=== PATIENT | male | born 1985 | race Two or more races ===

== ENCOUNTER 2025-01-25 11:12 | Emergency (ER) | payer OTHER ==
[~2025-01-25] VITALS: Ht 160 cm; Wt 82.7 kg
--- NOTE | 2025-01-25 11:52 | ED.PDOC ---
History of Present Illness HPI Comments HPI: Past Medical history: DM Past Surgical history: Denies any Medications: Metformin Social History: Denies smoking, and drug use. Daily Alcohol user Allergies: NKDA 39-YEAR-OLD MALE PRESENTS TO EMERGENCY DEPART FOR FOUR DAY HISTORY of some morning sweats and episode of vomit that is yellow in color but everything resolves after words. These symptoms only happened in the morning. Patient went to [facility] two days ago for the same complaint and was given fluid hydration and labs were done and he was told that everything is normal and he wa s discharged home. He was also told that he might be hypertensive. Patient drinks alcohol daily at least two tall cans and two shots daily. Patient had some decreased p.o. intake in the last few days and no bowel movement however he had a bowel movement this morning that was normal. Denies any associated abdominal pain. Denies any diarrhea. Patient has checked his temperature at home and he says he has been afebrile. HPI: Poor Historian. Past Medical History: Diabetes Past Surgical History: Denies any REVIEW OF SYSTEMS: CONSTITUTIONAL: Denies acute: fever, , chills, HEAD: Denies acute: headache, photophobia Eyes: Denies acute: Double vision, vision loss, eye pain, eye discharge. EARS: Denies acute: tinnitus, hearing loss, ear discharge, ear pain, THROAT: Denies acute: sore throat, swelling, difficulty swallowing , pain with swallowing, change in voice. NECK: Denies acute: neck pain, neck swelling, stiff neck. HEART: Denies acute : chest pain, palpitations, LUNGS: Denies acute: SOB, wheezing, cough, hemoptysis ABDOMEN: Denies acute: abdominal pain, Nausea, Vomiting, diarrhea, melena , hematemesis, hematochezia SKIN: Denies acute: rash, redness, lesions, itchiness. EXTREMITIES: Denies acute: calf pain, numbness, tingling, weakness, denies pain in extremity. Denies acute: Low back pain. Neuro: Denies acute: focal neurological deficit, motor or sensory focal neurological deficit, tremors, seizure like activity, confusion, dizziness, change in mental status, loss of bowel or bladder function, cauda equina like symptoms. : Denies acute: dysuria, hematuria, flank pain, increase in urinary frequency. PSYCH: Denies acute: hallucination, suicidal ideation, homicidal ideation. PHYSICAL EXAM: General: ----no----acute distress, awake and alert. Head: normocephalic, atraumatic. Neck: supple, trachea is midline, no swelling. Throat: Normal phonation. Eyes:, no erythema, no purulent discharge, no proptosis, mild icterus. Heart: regular rate, regular rhythm, no significant murmur appreciated. Lungs: no apparent respiratory distress, Able to speak in full sentences. No wheezing, no rhonchi, no crackles. No stridors Clear to auscultation bilaterally. Abdomen: non tender to palpation, non distended, soft, no guarding, no rebound, + bowel sounds. Neuro: Awake, Alert, oriented to name, self, situation, follows commands GCS=15. Speech is normal. Skin: no petechia, no purpura, no cyanosis, non-pale, not jaundice. Lower extremities: --no - Pitting edema no deformity, no focal swelling, no calf TTP. Makes eye contact. moves all four extremities. Face: no apparent facial droop. Ambulating in the ED independently. ED COURSE: DISCLAIMER: This medical document was created using an electronic medical record system with voice recognition software and computerized dictation system. Although this document has been carefully reviewed, there might still be some phonetic and typographical errors. Occasional wrong-word or "sound-alike" substitutions may have occurred due to the inherent limitations of voice recognition software. These areas are purely typographical due to imperfections of the software programs and do not reflect any compromise in the patient's medical care. Please read the chart carefully and recognize, using context, where these substitutions have occurred. Chief Complaint: General Weakness Time Seen by MD: 11:50 Reviewed Notes: Nurses Notes, Medications, Allergies Allergies: Coded Allergies: NO KNOWN ALLERGIES (Unverified , 01/25/25) Information Source: Patient Mode of Arrival: Ambulatory Timing: Days Duration: Since onset, Days Prehospital treatment: None Past Medical History PAST MEDICAL HISTORY: DM Surgical History: Denies all surgeries Family History Family History: Reviewed,noncontributory to illness, Unknown Social History Smoker: Non-Smoker Alcohol: Denies ETOH Use Drugs: Denies Drug Use Lives In: Home Was a procedure done? Was a procedure done?: No Differential Dx Considerations may include: Cirrhosis X-Ray, Labs, Meds, VS Vital Signs Date Time Temp Pulse Resp B/P (MAP) Pulse Ox O2 Delivery O2 Flow Rate FiO2 01/25/25 15:56 98.1 83 16 137/86 (103) 98 98.1 01/25/25 12:57 69 18 97 Room Air 01/25/25 12:57 69 18 131/83 (99) 69 01/25/25 11:14 97.4 80 18 144/101 98 97.4 Lab Test 01/25/25 15:47 01/25/25 14:26 01/25/25 13:51 01/25/25 12:19 Range/Units Troponin I High Sensitivity < 3 L 3 L 3 L </=54 ng/L Lactic Acid Level 1.8 2.6 *H 0.4-2.0 mmol/L Urine Color Yellow Yellow Urine Clarity Clear Clear Urine pH 6.0 5.0-9.0 Urine Specific [place] 1.010 1.001-1.035 Urine Protein Negative Negative Urine Ketones Trace Negative Urine Blood Negative Negative /uL Urine Nitrite Negative Negative Urine Bilirubin Negative Negative Urine Urobilinogen 4 H Negative mg/dL Urine Leukocyte Esterase Negative Negative /uL Urine RBC <1 0 - 3 /hpf Urine Microscopic WBC 1 0-3 /HPF Urine Squamous Epithelial Cells Few <5 /hpf Urine Bacteria None seen None Seen /hpf Urine Glucose Normal Normal mg/dL Urine Opiates Screen Pos NEGATIVE Urine Fentanyl Screen Neg NEGATIVE Urine Barbiturates Screen Neg NEGATIVE Urine Phencyclidine Screen Neg NEGATIVE Urine Amphetamines Screen Neg NEGATIVE Urine Benzodiazepines Screen Neg NEGATIVE Urine Cocaine Screen Neg NEGATIVE Urine Cannabinoids Screen Pos NEGATIVE White Blood Count 11.5 H 4.4-10.8 10^3/uL Red Blood Count 4.36 L 4.5-5.90 10^6/uL Hemoglobin 15.3 13.5-17.5 g/dL Hematocrit 45.3 41.0-53.0 % Mean Corpuscular Volume 103.8 H 80.0-100.0 fL Mean Corpuscular Hemoglobin 35.1 H 28.0-32.0 pg Mean Corpuscular Hemoglobin Concent 33.8 32.0-36.0 g/dL Red Cell Distribution Width 13.6 11.8-14.3 % Platelet Count 54 L 140-450 10^3/uL Mean Platelet Volume 9.2 6.9-10.8 fL Neutrophils (%) (Auto) 77.7 37.0-80.0 % Lymphocytes (%) (Auto) 12.9 10.0-50.0 % Monocytes (%) (Auto) 6.1 0.0-12.0 % Eosinophils (%) (Auto) 2.5 0.0-7.0 % Basophils (%) (Auto) 0.8 0.0-2.0 % Neutrophils # (Auto) 9.0 H 1.6-8.6 10 ^3/uL Lymphocytes # (Auto) 1.5 0.4-5.4 10 ^3/uL Monocytes # (Auto) 0.7 0-1.3 10 ^3/uL Eosinophils # (Auto) 0.3 0-0.8 10 ^3/uL Basophils # (Auto) 0.1 0-0.2 10 ^3/uL Nucleated Red Blood Cells 0.0 % Sodium Level 137 136-145 mmol/L Potassium Level 3.7 3.5-5.1 mmol/L Chloride Level 98 98-107 mmol/L Carbon Dioxide Level 25 20-31 mmol/L Anion Gap 14 5-15 Blood Urea Nitrogen 5 L 9-23 mg/dL Creatinine 0.57 L 0.700-1.30 mg/dL Glomerular Filtration Rate Calc 127 >90 mL/min BUN/Creatinine Ratio 8.8 L 10.0-20.0 Serum Glucose 117 H 74-106 mg/dL Calcium Level 9.5 8.7-10.4 mg/dL Magnesium Level 1.9 1.6-2.6 mg/dL Total Bilirubin 3.3 H 0.2-1.0 mg/dL Aspartate Amino Transferase (AST) 76 H 13-40 U/L Alanine Aminotransferase (ALT) 30 7-40 U/L Alkaline Phosphatase 151 H 46-116 U/L Total Protein 7.9 5.7-8.2 g/dL Albumin 4.5 3.2-4.8 g/dL [facility] [id number] [place] [id number] Ph: [phone] DIAGNOSTIC IMAGING Diagnostic Imaging Report : [id number] Signed PATIENT: BEATRICE DUMONT ACCT: [id number] UNIT: [id number] : 1985 LOC: ER ROOM / BED: / AGE / SEX: 39 / M ADM STATUS: REG ER SERVICE 1148 ORDERING PHYSICIAN: RAQUEL ALVA DO PROCEDURE(s): CXRP - CHEST PORTABLE REASON: WEAK. ORDER NUMBER(s): [id number], ACCESSION NUMBER(s): [id number] XY CHEST PORTABLE, HISTORY: WEAK. COMPARISON: XR CHEST 2 VIEWS on DOS: 09/18/24, XR CHEST 2 VIEWS on DOS: 09/14/24 XR CHEST 2 VIEWS on DOS: 09/18/24, XR CHEST 2 VIEWS on DOS: 09/14/24 TECHNICAL DATA: 1 view of the chest was obtained. FINDINGS: Lines and tubes: None Cardiomediastinal silhouette: normal Pulmonary vasculature: normal Lung expansion: normal Lung airspace: normal Lung interstitium: normal Pleura: normal Pneumothorax: no Bones: Unremarkable Other: no IMPRESSION: No acute intrathoracic abnormality. ATED BY: XAVI KIM MD DICTATED DATE/TIME: 01/25/251221 SIGNED BY: XAVI KIM MD SIGNED DATE/TIME: 01/25/251221 CC: [place] [address] Ph: [phone] DIAGNOSTIC IMAGING Diagnostic Imaging Report : [id number] Signed PATIENT: BEATRICE DUMONT ACCT: [id number] UNIT: [id number] : 1985 LOC: ER ROOM / BED: / AGE / SEX: 39 / M ADM STATUS: REG ER SERVICE 1440 ORDERING PHYSICIAN: RAQUEL ALVA DO PROCEDURE(s): ABPL - CT AB PEL WO CON-NO ORAL OR IV REASON: weak, hyperbili ORDER NUMBER(s): [id number], ACCESSION NUMBER(s): [id number] Indication: weak, hyperbili Technique: CT axial images of the abdomen and pelvis are obtained without contrast. Coronal and sagittal reformats were obtained. Radiation Dose Information: CTDI volume is 18 mGy. Dose-length product is 1009 mGy*cm Comparison: None FINDINGS: There is limited interpretation of the abdomen and pelvis without administration of intravenous contrast. The lung bases demonstrate no pleural effusion. Possible left lower lobe nodule versus atelectasis measuring 7 mm. Tiny bilateral pleural effusions. Adrenal glands unremarkable. Spleen is enlarged measuring 14 cm AP. Pancreas is unremarkable in shape. Cirrhotic morphology liver. Heterogeneous appearance of the liver with tiny nodules Cholelithiasis/sludge. Kidneys demonstrate no hydronephrosis / nephrolithiasis. Stomach is partially distended. Small bowel loops are moderately distended. Moderate volume stool in the colon. Normal appendix. Mesenteric edema. Small amount of ascites fluid. Bladder partially distended. Small amount of free pelvic fluid. No inguinal lymphadenopathy. Xjgi-zb-zxgllesc bilateral sacroiliac degenerative joint disease. Epzj-ry-yazsghjh thoracolumbar degenerative disc disease. IMPRESSION: Limited evaluation without contrast. Cirrhotic morphology liver with sequela of portal hypertension including splenomegaly, mesenteric edema, small amount of ascites fluid. Heterogeneous appearance of the liver with tiny nodules may represent regenerative nodules. Recommend multiphasic MRI abdomen with and without contrast and correlation with alpha fetoprotein levels. Cholelithiasis/ sludge. 7 mm left lower lobe soft tissue nodule. Recommend follow-up per Fleischner society criteria. Other findings as described. ATED BY: CARMELITA DOUGLAS MD DICTATED DATE/TIME: 01/25/251555 SIGNED BY: CARMELITA DOUGLSA MD SIGNED DATE/TIME: 01/25/251555 CC: Time of 1ST Reevaluation: 12:20 Reevaluation 1ST: Unchanged Patient Education/Counseling: Diagnosis, Treatment, Prognosis Family Education/Counseling: No Family Present Comments MDM: patient presented with the above HPI.--multiple symptoms----workup was initiated. patient was found with the above mentioned diagnosis. the following medications were ordered: please refer to order lists of meds and tests obtained by myself Dr. Alva. Patient ED course and VS have been stabilized. Patient has been reassessed in the ED and remained in a stable condition. Pertinent incidental findings were discussed with the patient and/or family. Patient/family voices understanding and is agreeable with plan. Patient has been observed in the ED adequate length of time to insure improvement/stability. Escalation of care considered: Consideration of escalation to observation or admission Patient was ADMITTED to the medicine team for further evaluation and treatment of their presentation. However patient left against medical advice All the reports of any imaging studies that were ordered by myself were reviewed by myself. SEPSIS Sepsis Screen Date sepsis recognized/suspect: Jan 25, 2025 Time Sepsis recognized/suspect: 1114 Recent Procedure: No On Antibiotic Therapy: No Respiratory Rate >20: No Heart Rate >90: No Temp<36 C (96.8 F) or >38.3 C: No SBP <90 or MAP <65 mmHG: No New Acute Mental Status Change: No Is the patient on CPAP, BIPAP,: No Physician Orders Retail Pharmacy Manager (01/25/25 ) Chest Portable (01/25/25 11:48) Electrocardigram (01/25/25 11:48) Ct Ab Pel Wo Con-No Oral Or Iv (01/25/25 14:40) Vital Signs Date Time Temp Pulse Resp B/P (MAP) Pulse Ox O2 Delivery O2 Flow Rate FiO2 01/25/25 15:56 98.1 83 16 137/86 (103) 98 98.1 01/25/25 12:57 69 18 97 Room Air 01/25/25 12:57 69 18 131/83 (99) 69 01/25/25 11:14 97.4 80 18 144/101 98 97.4 Laboratory Tests Test 01/25/25 12:19 01/25/25 14:26 Lactic Acid Level 2.6 mmol/L (0.4-2.0) *H 1.8 mmol/L (0.4-2.0) White Blood Count 11.5 10^3/uL (4.4-10.8) H Departure 1 Departure Time of Disposition: 12:49 Impression: Primary Impression: Generalized weakness Additional Impressions: Thrombocytopenia Liver cirrhosis Qualified Codes: K74.60 - Unspecified cirrhosis of liver; R18.8 - Other ascites Portal hypertension Ascites Qualified Codes: K70.31 - Alcoholic cirrhosis of liver with ascites Left against medical advice Disposition: 07 LEFT AGAINST MEDICAL ADVICE Admit to: Tele Condition: Guarded Additional Instructions: You are leaving against medical advice. Please seek medical attention [facility]. Seek help regarding your alcohol use. Fall on trauma and bleeding precautions. Your platelets are low. Please return to the emergency department if you change your mind. Additional instructions: Please read all instructions provided in this packet carefully. If you are unable to see your primary care/family doctor, please return to our emergency room for re-assessment and re-evaluation in 1 to 2 days. Return to the emergency room here in our facility or to the nearest ER [facility] if your symptoms change or worsen. CONSULTATIONS: you MUST Follow-up for consultation as soon as possible with: ---gastroenterology [facility] You MUST call the consultants office yourself to make an appointment. You may need to arrange that through your insurance and/or your primary/family doctor. If you are unable to see the baby registry sales consultant in 1 to 2 days, you must return to our emergency room (or any other ER of your choice) for re-assessment and re- evaluation. Adequate fluid hydration. Although you have been discharged from the Emergency Department, this does not mean that you have a "clean bill of health". No definitive diagnosis for your symptoms has been made today. It is possible that you are in the process of d eveloping a serious illness. This is why you must return to the ED without fail if any new or worsening symptoms develop. Below is a copy of your radiological report for follow up: [place] [address] Ph: [phone] DIAGNOSTIC IMAGING Diagnostic Imaging Report : [id number] Signed PATIENT: BEATRICE DUMONT ACCT: [id number] UNIT: [id number] : 1985 LOC: ER ROOM / BED: / AGE / SEX: 39 / M ADM STATUS: REG ER SERVICE 1440 ORDERING PHYSICIAN: RAQUEL ALVA DO PROCEDURE(s): ABPL - CT AB PEL WO CON-NO ORAL OR IV REASON: weak, hyperbili ORDER NUMBER(s): [id number], ACCESSION NUMBER(s): [id number] Indication: weak, hyperbili Technique: CT axial images of the abdomen and pelvis are obtained without contrast. Coronal and sagittal reformats were obtained. Radiation Dose Information: CTDI volume is 18 mGy. Dose-length product is 1009 mGy*cm Comparison: None FINDINGS: There is limited interpretation of the abdomen and pelvis without administration of intravenous contrast. The lung bases demonstrate no pleural effusion. Possible left lower lobe nodule versus atelectasis measuring 7 mm. Tiny bilateral pleural effusions. Adrenal glands unremarkable. Spleen is enlarged measuring 14 cm AP. Pancreas is unremarkable in shape. Cirrhotic morphology liver. Heterogeneous appearance of the liver with tiny no dules Cholelithiasis/sludge. Kidneys demonstrate no hydronephrosis / nephrolithiasis. Stomach is partially distended. Small bowel loops are moderately distended. Moderate volume stool in the colon. Normal appendix. Mesenteric edema. Small amount of ascites fluid. Bladder partially distended. Small amount of free pelvic fluid. No inguinal lymphadenopathy. Kcuz-xt-hzcugpyf bilateral sacroiliac degenerative joint disease. Gsia-ns-axjffvma thoracolumbar degenerative disc disease. IMPRESSION: Limited evaluation without contrast. Cirrhotic morphology liver with sequela of portal hypertension including splenomegaly, mesenteric edema, small amount of ascites fluid. Heterogeneous appearance of the liver with tiny nodules may represent regenerative nodules. Recommend multiphasic MRI abdomen with and without contrast and correlation with alpha fetoprotein levels. Cholelithiasis/ sludge. 7 mm left lower lobe soft tissue nodule. Recommend follow-up per Fleischner society criteria. Other findings as described. ATED BY: CARMELITA DOUGLAS MD DICTATED DATE/TIME: 01/25/251555 SIGNED BY: CARMELITA DOUGLAS MD SIGNED DATE/TIME: 01/25/251555 CC: Discharged With: Self Critical Care Note Critical Care Time?: No Heart Score Heart Score: Heart Score Response (Comments) Value History N/A 0 EKG N/A 0 Age N/A 0 Risk Factors N/A 0 Troponin N/A 0 Total 0 I personally scribed for RAQUEL ALVA DO ([email or web address]) on 01/25/25 at 11:52. Electronically submitted by Ifeanyi Bass ([facility]). I personally scribed for RAQUEL ALVA DO ([email or web address]) on 01/25/25 at 12:46. Electronically submitted by Ifeanyi Bass ([facility]). I personally scribed for RAQUEL ALVA DO ([email or web address]) on 01/25/25 at 16:25. Electronically submitted by Ifeanyi Bass ([facility]). I personally scribed for RAQUEL ALVA DO ([email or web address]) on 01/25/25 at 16:26. Electronically submitted by Ifeanyi Bass ([email or web address]). RAQUEL ALVA DO Jan 25, 2025 11:52
[2025-01-25] MEDS: SODIUM CHLORIDE 0.9% 1,000 ML IV ONE (12:00)
--- NOTE | 2025-01-25 12:25 | DVH ---
XY CHEST PORTABLE, HISTORY: WEAK. COMPARISON: XR CHEST 2 VIEWS on DOS: 09/18/24, XR CHEST 2 VIEWS on DOS: 09/14/24 XR CHEST 2 VIEWS on DOS: 09/18/24, XR CHEST 2 VIEWS on DOS: 09/14/24 TECHNICAL DATA: 1 view of the chest was obtained. FINDINGS: Lines and tubes: None Cardiomediastinal silhouette: normal Pulmonary vasculature: normal Lung expansion: normal Lung airspace: normal Lung interstitium: normal Pleura: normal Pneumothorax: no Bones: Unremarkable Other: no IMPRESSION: No acute intrathoracic abnormality.
[2025-01-25 12:33] LABS: Hemoglobin 15.3 g/dL (13.5-17.5); Nucleated Red Blood Cells % 0.0 %
[2025-01-25 12:34] LABS: Hematocrit 45.3 % (41.0-53.0); Mean Corpuscular Hemoglobin 35.1 pg (28.0-32.0); Mean Corpuscular Volume 103.8 fL (80.0-100.0)
[2025-01-25 12:47] LABS: Alanine Aminotransferase 30 U/L (7-40); Albumin 4.5 g/dL (3.2-4.8); Anion Gap 14 (5-15); BUN/Creatinine Ratio 8.8 (10.0-20.0); Calcium 9.5 mg/dL (8.7-10.4); Carbon Dioxide 25 mmol/L (20-31); Chloride 98 mmol/L (98-107); Magnesium 1.9 mg/dL (1.6-2.6); Potassium 3.7 mmol/L (3.5-5.1); Sodium 137 mmol/L (136-145); Total Protein 7.9 g/dL (5.7-8.2)
[2025-01-25 12:48] LABS: Alkaline Phosphatase 151 U/L (46-116); Bilirubin, Total 3.3 mg/dL (0.2-1.0); Blood Urea Nitrogen 5 mg/dL (9-23); Glucose 117 mg/dL (74-106)
[2025-01-25 12:55] LABS: Lactic Acid w/Reflex 2.6 mmol/L (0.4-2.0)
[2025-01-25] MEDS: THIAMINE HCL 100 MG TAB PO ONE (13:42)
[2025-01-25 14:09] LABS: Urine Protein, UAD Negative (Negative)
[2025-01-25 14:23] LABS: Opiate Scree,Urine Pos (NEGATIVE)
[2025-01-25 14:24] LABS: Amphetamine Screen, Urine Neg (NEGATIVE); Barbiturate Scree,Urine Neg (NEGATIVE); Benzodiazephine Screen, Urine Neg (NEGATIVE); Cannabinoid Screen, Urine Pos (NEGATIVE); Cocaine Screen, Urine Neg (NEGATIVE); Phencyclidine Screen, Urine Neg (NEGATIVE)
--- NOTE | 2025-01-25 15:54 | DVH ---
Indication: weak, hyperbili Technique: CT axial images of the abdomen and pelvis are obtained without contrast. Coronal and sagit priyanka reformats were obtained. Radiation Dose Information: CTDI volume is 18 mGy. Dose-length product is 1009 mGy*cm Comparison: None FINDINGS: There is limited interpretation of the abdomen and pelvis without administration of intravenous contr ast. The lung bases demonstrate no pleural effusion. Possible left lower lobe nodule versus atelectasis me asuring 7 mm. Tiny bilateral pleural effusions. Adrenal glands unremarkable. Spleen is enlarged measuring 14 cm AP. Pancreas is unremarkable in shape. Cirrhotic morphology liver. Heterogeneous appearance of the liver with tiny nodules Cholelithiasis/sl udge. Kidneys demonstrate no hydronephrosis / nephrolithiasis. Stomach is partially distended. Small bowel loops are moderately distended. Moderate volume stool in the colon. Normal appendix. Mesenteric edema. Small amount of ascites fluid. Bladder partially distended. Small amount of free p elvic fluid. No inguinal lymphadenopathy. Vmgc-sf-mkhihyyy bilateral sacroiliac degenerative joint disease. Valz-ub-lnnevxwt thoracolumbar dege nerative disc disease. IMPRESSION: Limited evaluation without contrast. Cirrhotic morphology liver with sequela of portal hypertension including splenomegaly, mesenteric geo ma, small amount of ascites fluid. Heterogeneous appearance of the liver with tiny nodules may represent regenerative nodules. Recommen d multiphasic MRI abdomen with and without contrast and correlation with alpha fetoprotein levels. Cholelithiasis/ sludge. 7 mm left lower lobe soft tissue nodule. Recommend follow-up per Fleischner society criteria. Other findings as described.
[2025-01-25 15:56] VITALS: BP 137/86; PULSE 83; RESP 16; TEMP 98.1; O2SAT 98
== END 2025-01-25 16:46 | disposition left against medical advice (07) ==
LOC: ER 11:12
DX: R53.1 Weakness (principal); D69.6 Thrombocytopenia, unspecified; K76.6 Portal hypertension; K74.60 Unspecified cirrhosis of liver; R18.8 Other ascites; E11.9 Type 2 diabetes mellitus without complications
CPT/HCPCS: 36415; 71045; 74176; 80053; 80307; 81001; 82947; 83605; 83735; 84484; 85025; 96360; 99284; J7030